=== PATIENT | male | born 1935 | race African-American/Black ===

== ENCOUNTER 2018-04-19 14:28 | Inpatient (IN) | payer MEDICARE, OTHER ==
[~2018-04-19] VITALS: Ht 180.3 cm; Wt 85.5 kg
[~2018-04-19 14:28] MED LIST: ALLOPURINOL300 M1 ORAL; AMLODIPINE BESY10 MG ORAL; BENAZEPRIL HCL40 MG ORAL; IBUPROFEN200 MG ORAL; NORCO 5-325 TA1 EAC1 ORAL; PRAVASTATIN SOD20 M1 ORAL
[2018-04-19] MEDS ORDERED: BENAZEPRIL HCL40 MG ORAL (14:34)
[2018-04-19] MEDS ORDERED: SEROQUEL25 MG ORAL (14:34)
[2018-04-19] MEDS ORDERED: FLOMAX0.4 MG ORAL (14:34)
[2018-04-19] MEDS ORDERED: COLACE100 MG ORAL (14:34)
[2018-04-19] MEDS ORDERED: GABAPENTIN600 MG ORAL (14:34)
[2018-04-19] MEDS ORDERED: ZANTAC150 MG ORAL (14:34)
[2018-04-19] MEDS ORDERED: METOPROLOL SUCC50 MG ORAL (14:34)
[2018-04-19] MEDS ORDERED: CYMBALTA60 MG ORAL (14:34)
[2018-04-19] MEDS ORDERED: VITAMIN D400 INTLU ORAL (14:34)
[2018-04-19] MEDS ORDERED: MAPAP ARTHRITI650 MG ORAL (14:41)
[2018-04-19] MEDS ORDERED: AMLODIPINE BESY10 MG ORAL (14:41)
[2018-04-19] MEDS ORDERED: ALLOPURINOL300 M1 ORAL (14:41)
[2018-04-19] MEDS ORDERED: HYDRALAZINE HCL50 MG ORAL (14:41)
[2018-04-19] MEDS ORDERED: ASPIRIN-LOW81 MG ORAL (14:41)
[2018-04-19] MEDS ORDERED: NORCO 5-325 TA1 EACH ORAL (14:41)
[2018-04-19] MEDS ORDERED: PLAVIX75 MG ORAL (14:41)
[2018-04-19] MEDS ORDERED: COZAAR50 MG ORAL (14:41)
--- NOTE | 2018-04-19 15:08 | Emergency Room Report ---
History of Present Illness General Chief Complaint: General Complaint Source: Patient, Medical Record, EMS Present Illness HPI 83-year-old male, history of hypertension, coming from senior living, for right lip and right facial swelling. He is allergic to oranges and fish, but says that he did not consume this. EMS states that senior living said that he developed a right facial swelling right with swelling over the last few hours. Patient is asymptomatic. No shortness of breath no feeling of his throat closing, no wheezing no nausea vomiting no diarrhea. Says that this has never happened to him before. Takes benazepril Allergies: Uncoded Allergies: ORANGES (Allergy, Unknown, 04/19/18) SHELLFISH (Allergy, Unknown, 04/19/18) Patient History Past Medical History: see triage record Past Surgical History: none Pertinent Family History: none Reviewed Nursing Documentation: PMH: Agreed; PSxH: Agreed Nursing Documentation-PMH Past Medical History: No History, Except For Hx Hypertension: Yes Hx Cancer: No Hx Gastrointestinal Problems: No Hx Neurological Problems: No Review of Systems All Other Systems: negative except mentioned in HPI Physical Exam Vital Signs Date Time Temp Pulse Resp B/P (MAP) Pulse Ox O2 Delivery O2 Flow Rate FiO2 04/19/18 14:29 98.3 64 16 134/80 94 Room Air 98.2 Sp02 EP Interpretation: reviewed, normal General Appearance: normal inspection, well appearing, no apparent distress, alert, GCS 15, non-toxic Head: normocephalic, atraumatic Eyes: bilateral eye normal inspection, bilateral eye PERRL, bilateral eye EOMI ENT: other - Edema of the right lip and right face, normal oropharynx, no tongue swelling no elevation of the floor of the mouth, no tonsillar enlargement or erythema, no stridor Neck: normal inspection, full range of motion, supple Respiratory: normal inspection, lungs clear, normal breath sounds, no respiratory distress, no retraction, no wheezing, speaking full sentences, chest symmetrical Cardiovascular #1: normal inspection, regular rate, rhythm, no edema, normal capillary refill Cardiovascular #2: 2+ radial (R), 2+ radial (L) Gastrointestinal: normal inspection, non tender, soft, non-distended, no guarding Musculoskeletal: normal inspection, back normal, normal range of motion, non- tender Neurologic: normal inspection, alert, oriented x3, responsive, motor strength/ tone normal, sensory intact, normal gait, speech normal Psychiatric: normal inspection, judgement/insight normal, memory normal Skin: normal inspection, normal color, no rash, warm/dry, well hydrated, normal turgor Procedures Critical Care Time Critical Care Time 40 minutes of CC time 83-year-old male, angioedema, possibly secondary to TARAS inhibitor use, requires close airway management Anticipate admission to icu CC time also includes review of labs, review of EMR, discussion with family and paperwork from SNF, d/w hospitalist CC could include dosing of pressors, additional Abx CC time does not include procedures Medical Decision Making Diagnostic Impression: Primary Impression: Angioedema ER Course 83-year-old male, right facial and right lip swelling Differential diagnosis includes possible allergic reaction versus angioedema from TARAS inhibitor Plan: Benadryl, pepcid, steroids No epi is required at this time Will closely observe ER course: Pt given meds, satting 100 on RA No stridor however edema is the same/persistent Still no posterior tonsillar or uvula enlargement or swelling Disposition: Patient will be admitted to ICU for close airway management, discussed with Dr. Orr EKG Diagnostic Results EP Interpretation: Yes Rate: 96 Rhythm: ST Segments t wave flatten aVL ASA given to patient: No Rhythm Strip EP Interpretation: Yes Rate: 96 Rhythm: Chest X-ray CXR: Ordered: Yes 1 view Indication: Chest pain EP interpretation: Yes Interpretation: No consolidation, no effusion, no PTX, no acute cardiopulmonary disease, PPM noted Impression: No acute disease Electronically signed by Emmett Arias MD Laboratory Tests Test 04/19/18 15:28 White Blood Count 5.5 K/UL (4.8-10.8) Red Blood Count 4.40 M/UL (4.70-6.10) L Hemoglobin 13.7 G/DL (14.2-18.0) L Hematocrit 42.6 % (42.0-52.0) Mean Corpuscular Volume 97 FL (80-99) Mean Corpuscular Hemoglobin 31.2 PG (27.0-31.0) H Mean Corpuscular Hemoglobin Concent 32.2 G/DL (32.0-36.0) Red Cell Distribution Width 11.8 % (11.6-14.8) Platelet Count 293 K/UL (150-450) Mean Platelet Volume 7.1 FL (6.5-10.1) Neutrophils (%) (Auto) 44.7 % (45.0-75.0) L Lymphocytes (%) (Auto) 38.2 % (20.0-45.0) Monocytes (%) (Auto) 12.9 % (1.0-10.0) H Eosinophils (%) (Auto) 3.4 % (0.0-3.0) H Basophils (%) (Auto) 0.7 % (0.0-2.0) Prothrombin Time 10.5 SEC (9.30-11.50) Prothrombin Time INR 1.0 (0.9-1.1) PTT 30 SEC (23-33) Sodium Level 138 MMOL/L (136-145) Potassium Level 4.7 MMOL/L (3.5-5.1) Chloride Level 103 MMOL/L (98-107) Carbon Dioxide Level 26 MMOL/L (21-32) Anion Gap 9 mmol/L (5-15) Blood Urea Nitrogen 13 mg/dL (7-18) Creatinine 1.0 MG/DL (0.55-1.30) Estimate Glomerular Filtration Rate mL/min (>60) Glucose Level 84 MG/DL (74-106) Calcium Level 9.7 MG/DL (8.5-10.1) Total Bilirubin 0.4 MG/DL (0.2-1.0) Aspartate Amino Transferase (AST) 36 U/L (15-37) Alanine Aminotransferase (ALT) 35 U/L (12-78) Alkaline Phosphatase 89 U/L (46-116) Troponin I 0.000 ng/mL (0.000-0.056) Total Protein 7.5 G/DL (6.4-8.2) Albumin 3.4 G/DL (3.4-5.0) Globulin 4.1 g/dL Last Vital Signs Date Time Temp Pulse Resp B/P (MAP) Pulse Ox O2 Delivery O2 Flow Rate FiO2 04/19/18 14:29 98.3 64 16 134/80 94 Room Air 98.2 Disposition: ADMITTED INPATIENT Condition: Critical Emmett Arias M.D. Apr 19, 2018 15:08
[2018-04-19] MEDS ORDERED: Solu-MEDROL 125mg Inj IVP ONE (15:15)
[2018-04-19] MEDS ORDERED: DiphenhydrAMINE 50mg/ml Inj IVP ONE (15:15)
[2018-04-19 15:30] VITALS: BP 143/73
[2018-04-19 15:45] LABS: BASOPHILS % (AUTO) 0.7 % (0.0-2.0); EOSINOPHILS % (AUTO) 3.4 % (0.0-3.0); HEMATOCRIT 42.6 % (42.0-52.0); HEMOGLOBIN 13.7 G/DL (14.2-18.0); LYMPHOCYTES % (AUTO) 38.2 % (20.0-45.0); MEAN CORPUSCULAR VOLUME 97 FL (80-99); MONOCYTES % (AUTO) 12.9 % (1.0-10.0); NEUTROPHILS % (AUTO) 44.7 % (45.0-75.0); PLATELET COUNT 293 K/UL (150-450); RED CELL DISTRIBUTION WIDTH 11.8 % (11.6-14.8); WHITE BLOOD COUNT 5.5 K/UL (4.8-10.8)
--- NOTE | 2018-04-19 15:54 | Diagnostic Imaging Report ---
Indication: Chest pain Comparison: 12/25/2010 A single view chest radiograph was obtained. Findings: No definite infiltrate or pulmonary vascular congestion identified. The heart is normal in size. Pacemaker noted on the left. The aorta is mildly enlarged consistent with atherosclerotic vascular disease. The bones are osteopenic. Impression: No acute disease
[2018-04-19 15:55] LABS: ANION GAP 9 mmol/L (5-15); BLOOD UREA NITROGEN 13 mg/dL (7-18); CALCIUM 9.7 MG/DL (8.5-10.1); CARBON DIOXIDE 26 MMOL/L (21-32); CHLORIDE 103 MMOL/L (98-107); POTASSIUM 4.7 MMOL/L (3.5-5.1); SODIUM 138 MMOL/L (136-145)
[2018-04-19 15:59] LABS: ALANINE AMINOTRANSFERASE 35 U/L (12-78); ALBUMIN 3.4 G/DL (3.4-5.0); ALKALINE PHOSPHATASE 89 U/L (46-116); ASPARTATE AMINO TRANSFERASE 36 U/L (15-37); BILIRUBIN,TOTAL 0.4 MG/DL (0.2-1.0)
[2018-04-19 17:09] VITALS: BP 135/69
[2018-04-19 18:45] VITALS: BP 136/72
[2018-04-19 21:05] VITALS: BP 146/83
[2018-04-20] VITALS: BP 131/73
[2018-04-20] MEDS: Solu-MEDROL 125mg Inj IVP SCH ×4 (00:03→22:24)
--- NOTE | 2018-04-20 01:45 | Consultation ---
DATE OF CONSULTATION: 04/19/2018 CONSULTING PHYSICIAN: Danny Orr M.D. REFERRING PHYSICIAN: Jose De Jesus Tanner M.D. REASON FOR CONSULT: Facial swelling on the right side involving the lips and suggestive of angioedema. HISTORY OF PRESENT ILLNESS: This 83-year-old male, who resides in an assisted living facility. He was seen in my office about a week ago for routine evaluation. No new medications were given. Today, staff noted him to have swelling on his right face. It got spread to his lips and did not resolve and also affected his ability to eat. There was enlargement of the tongue area and lip with no stridor or wheezing noted. The patient was seen in the emergency room and given IV steroids with hospitalization initiated. PAST MEDICAL HISTORY: Cerebrovascular disease, dementia, degenerative disk disease with history of diskectomy, hypertensive heart disease, osteoarthritis, hyperlipidemia, and permanent pacemaker. COPD. ALLERGIES TO MEDICATIONS: None. FAMILY HISTORY: Notable for hypertension in a sister and cerebrovascular accident in his mother. SOCIAL HISTORY: Former smoker. No alcohol or substance abuse. REVIEW OF SYSTEMS: Not obtainable reliably from the patient. PHYSICAL EXAMINATION: VITAL SIGNS: Blood pressure 134/80, pulse 64, and respirations 16. SKIN: Pacemaker pocket site clean and dry. HEENT: Right face with swelling involving the lips, tongue, and cheek. No stridor or wheezing. CARDIAC: Regular rhythm and rate. Normal S1, S2 with a fourth heart sound. LUNGS: Clear. ABDOMEN: Soft. EXTREMITIES: Without edema. DIAGNOSTIC DATA: Pertinent data from record is reviewed. Outpatient echocardiogram revealed normal ejection fraction, concentric hypertrophy, and diastolic relaxation abnormality with no dysrhythmia, minimal degenerative valvular disease. The patient has been on angiotensin-converting enzyme inhibitor. Chest x-ray with no acute process. White count 5.5, hemoglobin 13.7. Troponin negative. Albumin 3.4. BUN 13, creatinine 1, and potassium 4.7. IMPRESSION: 1. Angioedema, likely due to angiotensin-converting enzyme inhibitor. 2. Hypertensive heart disease. 3. Cerebrovascular disease with dementia. 4. No signs of respiratory insufficiency. PLAN: 1. IV steroids and inhaled bronchodilators. 2. Avoid TARAS inhibitors and ARB drugs. 3. Hydration by IV route. 4. Aspiration precautions. Danny Orr M.D. DR: SHYLA JOB#: [id number] CC:
[2018-04-20 04:00] VITALS: BP 134/82
[2018-04-20 08:00] VITALS: BP 114/71
[2018-04-20] MEDS: Allopurinol 100mg Tab ORAL SCH (09:24)
[2018-04-20] MEDS: Metoprolol Succinate XL 25mg tab ORAL SCH (09:25)
[2018-04-20] MEDS: Heparin 5000 units/ml inj SUBQ SCH ×2 (09:28→22:23)
[2018-04-20 12:00] VITALS: BP 141/82
--- NOTE | 2018-04-20 15:22 | Cardiology Report ---
APPROVED REPORT EKG Measurement Heart [id number] Normal sinus rhythm Septal infarct, age undetermined Abnormal ECG
[2018-04-20 16:00] VITALS: BP 140/66
[2018-04-20 20:00] VITALS: BP 127/72
[2018-04-20] MEDS ORDERED: Tamsulosin 0.4mg cap ORAL SCH (21:00)
--- NOTE | 2018-04-20 23:45 | History and Physical Report ---
DATE OF ADMISSION: 04/19/2018 CHIEF COMPLAINT: Angioedema. HISTORY OF PRESENT ILLNESS: The patient is a pleasant 83-year-old male well known to me. He has a history of osteoarthritis, degenerative disk disease, hyperlipidemia, history of conduction system disease, status post pacemaker, stroke, and COPD who presented from his assisted living with complaints of facial edema. Staff had noted swelling of the face, lips starting in the morning of admission. The patient is on TARAS inhibitor for blood pressure control. He presented to the emergency room. On evaluation there, the patient was in no respiratory distress. No stridor. He was started on steroids and Benadryl. In light of the facial edema, he is now admitted for further evaluation and care. PAST MEDICAL HISTORY: As above. PAST SURGICAL HISTORY: Includes hip surgery. CURRENT MEDICATIONS: Reconciled and reviewed. ALLERGIES: None FAMILY HISTORY: None. SOCIAL HISTORY: Negative for tobacco, ethanol, or drugs. REVIEW OF SYSTEMS: GENERAL: No fevers or chills. HEENT: No headaches or visual changes. CARDIOPULMONARY: No chest pain or shortness of breath. GASTROINTESTINAL: No nausea or vomiting. GENITOURINARY: No urgency or frequency. MUSCULOSKELETAL: No joint pain or swelling. NEUROLOGIC: No evidence of seizures. PHYSICAL EXAMINATION: VITAL SIGNS: Temperature 98 degrees, blood pressure 130/80, pulse 70, respirations 20. GENERAL: The patient is well-developed male, in no apparent distress. HEENT: He has facial edema and swelling of the lips mostly involving the right side of the face. There is no stridor noted. NECK: Supple. There is no jugular venous distention. HEART: Regular rate and rhythm. LUNGS: Clear. ABDOMEN: Soft, nontender, nondistended. EXTREMITIES: Without clubbing, cyanosis, or edema. LABORATORY DATA: White count 5, hemoglobin 13. Creatinine is 1. Potassium 4.7. ASSESSMENT: 1. This is a pleasant male admitted with complaints of facial edema and angioedema likely secondary to TARAS inhibitors. 2. Hypertension. 3. History of stroke. 4. History of osteoarthritis. 5. Conduction system disease. PLAN: 1. Discontinue TARAS inhibitor. 2. Intravenous steroids. 3. Antihistamine. 4. Supplemental oxygen. 5. Monitor airway and respiratory status closely. 6. Cardiology consultation to adjust patient's blood pressure medications. Jose De Jesus Tanner M.D. DR: Celina JOB#: [id number] CC:
[2018-04-21] VITALS: BP 140/66
--- NOTE | 2018-04-21 03:00 | Progress Note ---
DATE: 04/20/2018 CARDIOLOGY PROGRESS NOTE SUBJECTIVE: The patient's swelling is slightly improved. He has no shortness of breath. He has not had any difficulty overnight with wheezing. OBJECTIVE: VITAL SIGNS: Blood pressure 141/82, pulse 77, respiratory rate 20, and afebrile. HEENT: Oropharynx reveals right-sided swelling involving the lower lip more now and improved overnight. LUNGS: Good breath sounds bilaterally. HEART: Regular rhythm and rate. Normal S1 and S2 with a fourth heart sound. ABDOMEN: Soft. EXTREMITIES: No edema. IMPRESSION: 1. Angioedema, likely secondary to TARAS inhibitor therapy although he has been on it for sometime that this is still the most likely possibility. 2. Hypertensive heart disease. 3. Chronic obstructive pulmonary disease. 4. Cerebrovascular disease. 5. Permanent pacemaker. PLAN: 1. No resumption of TARAS inhibitor. 2. Blood pressure management using amlodipine. 3. Outpatient pacemaker interrogation. 4. Steroid taper. Danny Orr M.D. DR: JOYCELYN JOB#: [id number] CC:
[2018-04-21 04:00] VITALS: BP 142/86
[2018-04-21] MEDS: Solu-MEDROL 125mg Inj IVP SCH ×3 (06:39→21:38)
[2018-04-21 08:00] VITALS: BP 149/85
[2018-04-21] MEDS: Metoprolol Succinate XL 25mg tab ORAL SCH (09:20)
[2018-04-21] MEDS: Allopurinol 100mg Tab ORAL SCH (09:21)
[2018-04-21] MEDS: Heparin 5000 units/ml inj SUBQ SCH ×2 (09:24→20:38)
[2018-04-21 12:00] VITALS: BP 155/92
[2018-04-21 16:00] VITALS: BP 128/63
[2018-04-21 20:00] VITALS: BP 149/86
[2018-04-21] MEDS: Tamsulosin 0.4mg cap ORAL SCH (20:38)
[2018-04-21] MEDS ORDERED: LORazepam Inj 2mg/ml 1ml IV PRN (21:30)
[2018-04-22] VITALS: BP 157/90
--- NOTE | 2018-04-22 03:00 | Progress Note ---
DATE: 04/21/2018 CARDIOLOGY PROGRESS NOTE SUBJECTIVE: Swelling decreasing. The patient has episodes of agitation. No difficulty swallowing or shortness of breath. OBJECTIVE: VITAL SIGNS: Blood pressure 149/86, pulse 70, respiratory rate 18. LUNGS: Clear. CARDIAC: Regular. ABDOMEN: Soft, no edema. Monitored rhythm sinus with paroxysms of atrial fibrillation and ventricular pacing. IMPRESSION: 1. Angioedema, improving. 2. Hypertensive heart disease. 3. Permanent pacemaker. 4. Degenerative disk disease. 5. Peripheral neuropathy, unsteady gait. PLAN: 1. Taper steroids. 2. No resumption of TARAS inhibitor. 3. Titrate amlodipine. 4. Physical and occupational therapy assessments. 5. Discharge planning. 6. Possible short stay at [facility] for [facility]. Danny Orr M.D. DR: VENICE JOB#: [id number] CC:
[2018-04-22 04:00] VITALS: BP 151/85
[2018-04-22] MEDS: Solu-MEDROL 125mg Inj IVP SCH ×2 (05:56→14:42)
[2018-04-22 08:00] VITALS: BP 159/98
[2018-04-22] MEDS: Allopurinol 100mg Tab ORAL SCH (08:33)
[2018-04-22] MEDS: Metoprolol Succinate XL 50mg tab ORAL SCH (08:34)
[2018-04-22] MEDS: Heparin 5000 units/ml inj SUBQ SCH ×2 (08:35→20:08)
[2018-04-22 12:00] VITALS: BP 133/78
--- NOTE | 2018-04-22 14:59 | General Progress Note ---
Assessment/Plan Problem List: (1) Angioedema ICD Codes: T78.3XXA - Angioneurotic edema, initial encounter SNOMED: 57614376 (2) Atrial fibrillation ICD Codes: I48.91 - Unspecified atrial fibrillation SNOMED: 71991246 Status: stable, progressing Assessment/Plan switch to po steroids benadryl resp care pt/ot dc planning Subjective ROS Limited/Unobtainable: No Constitutional: Reports: malaise, weakness HEENT: Reports: no symptoms Cardiovascular: Reports: no symptoms Respiratory: Reports: no symptoms Gastrointestinal/Abdominal: Reports: no symptoms Genitourinary: Reports: no symptoms Neurologic/Psychiatric: Reports: no symptoms Endocrine: Reports: no symptoms Hematologic/Lymphatic: Reports: no symptoms Allergies: Uncoded Allergies: ORANGES (Allergy, Unknown, 04/19/18) SHELLFISH (Allergy, Unknown, 04/19/18) All Systems: reviewed and negative except above Subjective facial edema mostly resolved. no sob. no chest pain weak. family wants pt to go to skilled section of [facility]. Objective Last 24 Hour Vital Signs Date Time Temp Pulse Resp B/P (MAP) Pulse Ox O2 Delivery O2 Flow Rate FiO2 04/22/18 12:00 65 04/22/18 08:34 88 159/98 04/22/18 08:33 88 159/98 04/22/18 08:00 64 04/22/18 08:00 Room Air 04/22/18 08:00 97.3 88 18 159/98 (118) 95 97.3 04/22/18 04:00 Room Air 04/22/18 04:00 98.5 66 22 151/85 (107) 95 98.5 04/22/18 03:32 66 04/22/18 00:00 97.5 68 18 157/90 (112) 96 97.5 04/22/18 00:00 Room Air 04/21/18 20:09 72 04/21/18 20:00 98.3 70 18 149/86 (107) 96 98.3 04/21/18 20:00 Room Air 04/21/18 16:00 Room Air 04/21/18 16:00 97.0 91 20 128/63 (84) 95 97.0 04/21/18 16:00 84 Intake and Output 04/21/18 04/22/18 19:00 07:00 Intake Total 120 ml 300 ml Output Total 340 ml 300 ml Balance -220 ml 0 ml Intake Oral 120 ml 300 ml Output Urine Total 340 ml 300 ml # Voids 1 3 Height (Feet): 5 Height (Inches): 11.00 Weight (Pounds): 188 General Appearance: WD/WN, alert Neck: supple Cardiovascular: regular rhythm Respiratory/Chest: chest wall non-tender, lungs clear, normal breath sounds Abdomen: normal bowel sounds, non tender, soft, no organomegaly Edema: no edema noted Arm (L), no edema noted Arm (R), no edema noted Leg (L), no edema noted Leg (R), no edema noted Pedal (L), no edema noted Pedal (R), no edema noted Generalized Jose De Jesus Tanner MD Apr 22, 2018 14:59
[2018-04-22 16:00] VITALS: BP 145/89
[2018-04-22 20:00] VITALS: BP 144/90
[2018-04-22] MEDS: Tamsulosin 0.4mg cap ORAL SCH (20:17)
[2018-04-23] VITALS (7 sets, daily range): BP systolic 130–155; BP diastolic 74–90
--- NOTE | 2018-04-23 02:45 | Progress Note ---
DATE: 04/22/2018 CARDIOLOGY PROGRESS NOTE SUBJECTIVE: The patient was seen and evaluated. Case was discussed with his sister, Stephanie Colon on phone. The patient's facial swelling has decreased. He is having no shortness of breath or difficulty swallowing. OBJECTIVE: VITAL SIGNS: Blood pressure 159/98, pulse 88, and respirations 20. LUNGS: Clear. CARDIAC: Regular. Normal S1 and S2 with a fourth heart sound. ABDOMEN: Soft. EXTREMITIES: No edema. Right ___ with minimal of swelling left. Monitor is atrial paced. IMPRESSION: 1. Angioedema, likely due to TARAS inhibitor, possibly due to alternate agent such as dietary products. 2. Hypertensive heart disease with rising blood pressure trend. 3. Permanent pacemaker. 4. Degenerative disk disease. 5. Chronic obstructive pulmonary disease with no active bronchospasm. PLAN: 1. Discontinue IV fluids expect improvement in blood pressure control and steroids are tapered off. 2. Maintained antihypertensive control with metoprolol and amlodipine for now. 3. Avoid TARAS inhibitor. 4. Discharge planning. Danny Orr M.D. DR: GEOVANNY JOB#: [id number] CC:
[2018-04-23] MEDS: Allopurinol 100mg Tab ORAL SCH (08:10)
[2018-04-23] MEDS: Heparin 5000 units/ml inj SUBQ SCH ×2 (08:10→20:30)
[2018-04-23] MEDS: Metoprolol Succinate XL 50mg tab ORAL SCH (08:23)
--- NOTE | 2018-04-23 08:42 | General Progress Note ---
Assessment/Plan Problem List: (1) Angioedema ICD Codes: T78.3XXA - Angioneurotic edema, initial encounter SNOMED: 58211443 (2) Atrial fibrillation ICD Codes: I48.91 - Unspecified atrial fibrillation SNOMED: 26324038 Status: stable, progressing Assessment/Plan po steroids benadryl off acei resp care pt/ot dc planning Subjective ROS Limited/Unobtainable: No Constitutional: Reports: malaise, weakness HEENT: Reports: no symptoms Cardiovascular: Reports: no symptoms Respiratory: Reports: no symptoms Gastrointestinal/Abdominal: Reports: no symptoms Genitourinary: Reports: no symptoms Neurologic/Psychiatric: Reports: no symptoms Endocrine: Reports: no symptoms Hematologic/Lymphatic: Reports: no symptoms Allergies: Uncoded Allergies: ORANGES (Allergy, Unknown, 04/19/18) SHELLFISH (Allergy, Unknown, 04/19/18) All Systems: reviewed and negative except above Subjective facial edema resolved. no sob. no chest pain weak. family wants pt to go to skilled section of [facility]. unclear if bed available or not Objective Last 24 Hour Vital Signs Date Time Temp Pulse Resp B/P (MAP) Pulse Ox O2 Delivery O2 Flow Rate FiO2 04/23/18 08:23 69 143/90 04/23/18 08:23 69 143/90 04/23/18 04:00 97.5 68 18 146/81 (102) 96 97.5 04/23/18 04:00 60 04/23/18 00:00 69 04/23/18 00:00 98.4 64 18 130/74 (92) 94 98.4 04/22/18 21:00 Room Air 04/22/18 20:00 98.3 68 20 144/90 (108) 94 98.3 04/22/18 20:00 65 04/22/18 16:00 66 04/22/18 16:00 97.6 67 18 145/89 (107) 89 97.6 04/22/18 12:00 98.0 72 18 133/78 (96) 95 98.0 04/22/18 12:00 65 Intake and Output 04/22/18 04/23/18 19:00 07:00 Intake Total 800 ml Output Total 1100 ml 300 ml Balance -300 ml -300 ml Intake Oral 800 ml Output Urine Total 1100 ml 300 ml # Voids 2 Height (Feet): 5 Height (Inches): 11.00 Weight (Pounds): 188 Objective General Appearance: WD/WN, alert Neck: supple Cardiovascular: regular rhythm Respiratory/Chest: chest wall non-tender, lungs clear, normal breath sounds Abdomen: normal bowel sounds, non tender, soft, no organomegaly Edema: no edema noted Arm (L), no edema noted Arm (R), no edema noted Leg (L), no edema noted Leg (R), no edema noted Pedal (L), no edema noted Pedal (R), no edema noted Generalized Jose De Jesus Tanner MD Apr 23, 2018 08:41
[2018-04-23] MEDS: Tamsulosin 0.4mg cap ORAL SCH (20:28)
--- NOTE | 2018-04-23 21:02 | Progress Note ---
DATE: 04/23/2018 CARDIOLOGY PROGRESS NOTE SUBJECTIVE: Facial edema has resolved. No shortness of breath or chest pain. OBJECTIVE: VITAL SIGNS: Blood pressure 143/90, pulse 70, respiratory rate 18. Monitored rhythm atrial-paced. HEENT: Oropharynx clear with no exudate or thrush. No facial edema. NECK: No stridor. LUNGS: Good breath sounds. No wheezing. CARDIAC: Regular rhythm and rate. Normal S1, S2 with no new murmur. ABDOMEN: Soft. EXTREMITIES: No edema. IMPRESSION: 1. Angioedema, resolved. 2. Hypertensive heart disease with improved blood pressure control. 3. Functional decline. 4. Unsteady gait. 5. Degenerative disk disease with radiculopathy. 6. Permanent pacemaker. 7. COPD. PLAN: 1. Mobilize. 2. Physical therapy. 3. Off TARAS inhibitor and no plan for resumption. 4. Titrate other cardiovascular medications as needed based on blood pressure and clinical parameters. 5. Recheck laboratory studies including natriuretic peptide assay. 6. Discharge plan to nursing home facility when bed available. Danny Orr M.D. DR: Asif JOB#: [id number] CC:
[2018-04-23] MEDS ORDERED: LORazepam Inj 2mg/ml 1ml IV PRN (21:30)
[2018-04-24] VITALS (7 sets, daily range): BP systolic 119–146; BP diastolic 65–91
[2018-04-24 08:20] LABS: ALANINE AMINOTRANSFERASE 74 U/L (12-78); ALBUMIN/GLOBULIN RATIO 0.8 (1.0-2.7); ALKALINE PHOSPHATASE 76 U/L (46-116); ANION GAP 8 mmol/L (5-15); ASPARTATE AMINO TRANSFERASE 62 U/L (15-37); BILIRUBIN,TOTAL 0.4 MG/DL (0.2-1.0); BLOOD UREA NITROGEN 25 mg/dL (7-18); CALCIUM 9.4 MG/DL (8.5-10.1); CARBON DIOXIDE 26 MMOL/L (21-32); CHLORIDE 107 MMOL/L (98-107); CREATININE 0.9 MG/DL (0.55-1.30); POTASSIUM 3.4 MMOL/L (3.5-5.1); SODIUM 141 MMOL/L (136-145)
--- NOTE | 2018-04-24 08:23 | General Progress Note ---
Assessment/Plan Problem List: (1) Angioedema ICD Codes: T78.3XXA - Angioneurotic edema, initial encounter SNOMED: 33345406 (2) Atrial fibrillation ICD Codes: I48.91 - Unspecified atrial fibrillation SNOMED: 10310629 Assessment/Plan po steroids- dc benadryl off acei resp care pt/ot dc planning Subjective ROS Limited/Unobtainable: No Constitutional: Reports: weakness HEENT: Reports: no symptoms Cardiovascular: Reports: no symptoms Respiratory: Reports: no symptoms Gastrointestinal/Abdominal: Reports: no symptoms Genitourinary: Reports: no symptoms Neurologic/Psychiatric: Reports: no symptoms Endocrine: Reports: no symptoms Hematologic/Lymphatic: Reports: no symptoms Allergies: Uncoded Allergies: ORANGES (Allergy, Unknown, 04/19/18) SHELLFISH (Allergy, Unknown, 04/19/18) All Systems: reviewed and negative except above Subjective facial edema resolved. no sob. no chest pain weak. family wants pt to go to skilled section of [facility]. unclear if bed available or not Objective Last 24 Hour Vital Signs Date Time Temp Pulse Resp B/P (MAP) Pulse Ox O2 Delivery O2 Flow Rate FiO2 04/24/18 04:00 97.7 63 20 141/81 (101) 98 97.7 04/24/18 00:00 98.2 63 20 145/67 (93) 96 98.2 04/23/18 21:00 Room Air 04/23/18 21:00 98.0 62 20 155/88 (110) 94 98.0 04/23/18 20:00 98.1 65 20 146/89 (108) 94 98.1 04/23/18 16:00 98.0 64 20 137/84 (101) 96 98.0 04/23/18 16:00 67 04/23/18 12:00 65 04/23/18 12:00 98.1 63 18 134/88 (103) 96 98.1 04/23/18 09:00 Room Air Intake and Output 04/23/18 04/24/18 19:00 07:00 Intake Total 400 ml Output Total 200 ml 450 ml Balance 200 ml -450 ml Intake Oral 400 ml Output Urine Total 200 ml 450 ml # Voids 3 2 Laboratory Tests 04/24/18 06:30: Sodium Level [Pending], Potassium Level [Pending], Chloride Level [Pending], Carbon Dioxide Level [Pending], Blood Urea Nitrogen [Pending], Creatinine [ Pending], Estimat Glomerular Filtration Rate [Pending], Glucose Level [Pending] , Uric Acid [Pending], Calcium Level [Pending], Magnesium Level [Pending], Total Bilirubin [Pending], Aspartate Amino Transf (AST/SGOT) [Pending], Alanine Aminotransferase (ALT/SGPT) [Pending], Alkaline Phosphatase [Pending], Pro-B- Type Natriuretic Peptide [Pending], Total Protein [Pending], Albumin [Pending], Globulin [Pending] Height (Feet): 5 Height (Inches): 11.00 Weight (Pounds): 188 Objective General Appearance: WD/WN, alert Neck: supple Cardiovascular: regular rhythm Respiratory/Chest: chest wall non-tender, lungs clear, normal breath sounds Abdomen: normal bowel sounds, non tender, soft, no organomegaly Edema: no edema noted Arm (L), no edema noted Arm (R), no edema noted Leg (L), no edema noted Leg (R), no edema noted Pedal (L), no edema noted Pedal (R), no edema noted Generalized Jose De Jesus Tanner MD Apr 24, 2018 08:23
[2018-04-24] MEDS: Metoprolol Succinate XL 50mg tab ORAL SCH (08:34)
[2018-04-24] MEDS: Allopurinol 100mg Tab ORAL SCH (08:38)
[2018-04-24] MEDS: Heparin 5000 units/ml inj SUBQ SCH ×2 (08:39→20:32)
--- NOTE | 2018-04-24 16:45 | Progress Note ---
DATE: 04/24/2018 CARDIOLOGY PROGRESS NOTE SUBJECTIVE: The patient is without any residual facial edema. No shortness of breath. Swelling has resolved. Appetite is good. No difficulty swallowing. No chest pain. OBJECTIVE: VITAL SIGNS: Blood pressure 141/81, pulse 63, respiratory rate 20. LUNGS: Clear. CARDIAC: Regular rhythm and rate. Normal S1, S2 with a fourth heart sound. ABDOMEN: Soft. EXTREMITIES: No edema. SKIN: Pacemaker pocket site clean and dry. Right face is without any swelling. LABORATORY DATA: Potassium 3.4, BUN 25, creatinine 0.9. Pro-natriuretic peptide 255. Albumin is 3. IMPRESSION: 1. Angioedema, probably due to TARAS inhibitor therapy. 2. Hypertensive heart disease. 3. Hypokalemia. 4. Mild protein-calorie malnutrition. 5. Chronic diastolic congestive heart failure. 6. Hypertensive heart disease. 7. COPD. PLAN: 1. No TARAS inhibitor or ARB therapy. 2. Taper off steroids. 3. Continue anti-platelet therapy with statin drug. 4. Titrate amlodipine and metoprolol for blood pressure management. 5. Discontinue Flomax. We will consider doxazosin in place of Flomax if additional antihypertensive therapy needed in the future. Carolin Reed JOB#: [id number] CC:
[2018-04-24] MEDS ORDERED: Tamsulosin 0.4mg cap ORAL SCH (21:00)
[2018-04-25 00:54] VITALS: BP 110/70
[2018-04-25 04:00] VITALS: BP 123/71
[2018-04-25 08:00] VITALS: BP 143/72
[2018-04-25] MEDS: Allopurinol 100mg Tab ORAL SCH (08:35)
[2018-04-25] MEDS: Metoprolol Succinate XL 50mg tab ORAL SCH (08:35)
[2018-04-25] MEDS: Heparin 5000 units/ml inj SUBQ SCH (08:38)
[2018-04-25 12:00] VITALS: BP 143/82
[2018-04-25] MEDS ORDERED: ALLOPURINOL100 M1 ORAL (15:14)
[2018-04-25] MEDS ORDERED: PRAVASTATIN SOD20 M1 ORAL (15:14)
[2018-04-25] MEDS ORDERED: ACETAMINOPHEN325 M1 ORAL (15:15)
[2018-04-25 16:00] VITALS: BP 146/84
--- NOTE | 2018-04-26 03:15 | Progress Note ---
DATE: 04/25/2018 CARDIOLOGY PROGRESS NOTE SUBJECTIVE: The patient is off the TARAS inhibitor since admission. Facial swelling has resolved. No shortness of breath or difficulty with breathing or swallowing. OBJECTIVE: VITAL SIGNS: Blood pressure 143/72, pulse 64, respiratory rate 18, and afebrile. HEENT: Oropharynx with no swelling. Lips and cheek without any residual swelling on the right. LUNGS: Clear. CARDIAC: Regular rhythm and rate. Normal S1 and S2 with a fourth heart sound. ABDOMEN: Soft. No edema. IMPRESSION: 1. Angioedema, resolved, likely due to TARAS inhibitor. 2. Hypertensive heart disease, permanent pacemaker. 3. COPD. 4. Unsteady gait. 5. Degenerative disk disease. PLAN: Maintain current cardiovascular regimen without TARAS inhibitors or ARB drugs in the future. Discussed with family members as well. Presently, no indication for additional blood pressure titration, but we will need to follow closely at senior living facility and adjust accordingly. Maintain anti-platelet and anti-lipid drugs, long-term. Danny Orr M.D. DR: MARYAM JOB#: [id number] CC:
--- NOTE | 2018-04-26 04:00 | Discharge Summary ---
DATE OF ADMISSION: 04/19/2018 DATE OF DISCHARGE: 04/25/2018 ADMISSION DIAGNOSES: 1. Angioedema. 2. Respiratory failure. 3. Hypertension. 4. History of chronic back pain. 5. Benign prostatic hypertrophy. 6. Hyperlipidemia. DISCHARGE DIAGNOSES: 1. Angioedema. 2. Respiratory failure. 3. Hypertension. 4. History of chronic back pain. 5. Benign prostatic hypertrophy. 6. Hyperlipidemia. HOSPITAL COURSE: The patient was admitted with a severe case of angioedema secondary to TARAS inhibitors. He was admitted initially to a monitored unit because of concern about his airway. He received supplemental oxygen. He received intravenous steroids, Benadryl, and antihistamines. He gradually improved over several days. He is of course was discontinued. On discharge, he was stable. Family requested he go to detention facility for short-term rehab. Please refer to the detention facility assisted living. The patient is to follow up in one to two days. DISCHARGE MEDICATIONS: Please see discharge medications list for discharge medications DIET: Cardiac diet. ACTIVITY: Ad-kari. Jose De Jesus Tanner M.D. DR: EAGLE JOB#: [id number] CC:
== END 2018-04-25 18:06 | DRG 915 ==
LOC: EDBD 14:28 → EMR 17:25 → 2W 17:36 → EDBEDREQ 18:10 → EDBEDREQSVC 18:10 → EDBEDREQ 19:08 → 2E 04-21 16:30 → 4E 04-23 20:35
DX: T78.3XXA Angioneurotic edema, initial encounter (principal); J96.90 Respiratory failure, unspecified, unspecified whether with hypoxia or hypercapnia; I10 Essential (primary) hypertension; T44.5X5A Adverse effect of predominantly beta-adrenoreceptor agonists, initial encounter; Y84.8 Other medical procedures as the cause of abnormal reaction of the patient, or of later complication, without mention of misadventure at the time of the procedure; I67.9 Cerebrovascular disease, unspecified; I11.9 Hypertensive heart disease without heart failure; M19.90 Unspecified osteoarthritis, unspecified site; E78.5 Hyperlipidemia, unspecified; Z95.0 Presence of cardiac pacemaker; J44.9 Chronic obstructive pulmonary disease, unspecified; Z87.891 Personal history of nicotine dependence; F01.50 Vascular dementia, unspecified severity, without behavioral disturbance, psychotic disturbance, mood disturbance, and anxiety; G62.9 Polyneuropathy, unspecified; Z91.013 Allergy to seafood; Z91.018 Allergy to other foods; R26.81 Unsteadiness on feet; M54.10 Radiculopathy, site unspecified; G89.29 Other chronic pain; M54.9 Dorsalgia, unspecified; N40.0 Benign prostatic hyperplasia without lower urinary tract symptoms
CPT/HCPCS: 36415; 71045; 80053; 83735; 83880; 84484; 84550; 85025; 85610; 85730; 87081; 93005; 96374; 96375; 99291; J8499